=== PATIENT | female | born 1955 | race Hispanic/Latino ===

== ENCOUNTER 2017-07-21 09:41 | Outpatient (CLI) | payer MEDICARE ==
--- NOTE | 2017-07-21 11:44 | Ultrasound Report ---
RIGHT BREAST ULTRASOUND: 07/21/17 09:41:00 CLINICAL: Right retroareolar breast mass by outside ultrasound. COMPARISON: [facility] right mammogram and right breast ultrasound 11/23/16. Report of that exam recommends an ultrasound guided right breast biopsy. FINDINGS: Ultrasound of the retroareolar right breast was performed and demonstrated normal retro-areolar fibroglandular structures with no mass to correlate with what was described as a shadowing retroareolar mass. The normal retroareolar fibroglandular structures are relatively firm and do produce shadowing at some angles. However, no suspicious shadowing. IMPRESSION: Negative retroareolar right breast ultrasound. In view of the discrepancy between prior imaging and this exam and considering the relatively great density of both breasts, recommend bilateral breast MRI. BI-RADS 0--Needs Additional Imaging RECOMMENDATION: Breast MRI
== END 2017-07-21 09:42 | disposition home or self-care (01) ==
LOC: SPVWC 09:41
PROVIDERS: ATTEND Surgery
DX: N63.10 Unspecified lump in the right breast, unspecified quadrant (principal); F32.9 Major depressive disorder, single episode, unspecified; I10 Essential (primary) hypertension; F17.210 Nicotine dependence, cigarettes, uncomplicated